=== PATIENT | female | born 1970 ===

== ENCOUNTER → 2020-07-06 09:57 | Outpatient (CLI) | payer OTHER | END | disposition home or self-care (01) | LOC: LAB 09:57 | PROVIDERS: ATTEND Emergency Medicine Pediatric Emergency Medicine | DX: Z03.818 Encounter for observation for suspected exposure to other biological agents ruled out (principal) ==

== ENCOUNTER 2024-03-06 07:49 | Outpatient (CLI) | payer OTHER | END 2024-03-06 07:50 | disposition home or self-care (01) | LOC: NUCLEAR 07:49 | DX: I70.0 Atherosclerosis of aorta (principal); R55 Syncope and collapse; Z87.891 Personal history of nicotine dependence ==

== ENCOUNTER 2024-03-17 08:59 | Outpatient (CLI) | payer OTHER | END 2024-03-17 09:00 | disposition home or self-care (01) | LOC: RAD 08:59 | PROVIDERS: ATTEND Orthopaedic Surgery | DX: M79.671 Pain in right foot (principal) ==